=== PATIENT | female | born 1935 | race American Indian/Alaskan Native ===

== ENCOUNTER 2021-04-19 16:36 | Outpatient (REF) | payer MEDICARE, OTHER, SELFPAY | END 2021-04-19 16:37 | disposition home or self-care (01) | LOC: HO.LNP 16:36 | PROVIDERS: Visit Provider Nurse Practitioner Family | DX: R35.0 Frequency of micturition (principal) | CPT/HCPCS: 87086; 87088; 87186 ==

== ENCOUNTER 2021-04-22 16:33 | Emergency (ER) | payer MEDICARE, OTHER, SELFPAY ==
[2021-04-22 16:45] VITALS: BP 123/58; PULSE 89; RESP 18; TEMP 36.8; O2SAT 95; BMI 19.1
== END 2021-04-22 19:38 | disposition left against medical advice (07) ==
PROVIDERS: Emergency Provider Emergency Medicine; PCP Internal Medicine
DX: R41.82 Altered mental status, unspecified (principal)
CPT/HCPCS: 99282

== ENCOUNTER 2021-04-24 13:50 | Emergency (ER) | payer MEDICARE, OTHER, SELFPAY ==
--- NOTE | ~2021-04-24 | CT_ITS ---
EXAMINATION: CT HEAD WITHOUT CONTRAST CLINICAL INFORMATION: Dizziness and headache COMPARISON: None TECHNIQUE: Contiguous axial imaging was performed from the skull base to vertex without intravenous administration of contrast. This CT examination was performed using dose optimization techniques as appropriate, variously including the following: *Automated exposure control *Adjustment of mA and/or kV according to patient size (this includes techniques or standardized protocols for targeted exams where dose is matched to indication/reason for exam; i.e. extremities or head) *Use of iterative reconstruction technique DLP: 584 mGy-cm FINDINGS: There is no evidence of acute intracranial hemorrhage or territorial infarction. 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 No abnormal mass effect or midline shift is seen. Gonzales to white matter differentiation is well preserved. No extra-axial fluid collections are identified. The lateral ventricles are symmetrical in size and configuration without enlargement. There is diffuse periventricular hypodensity in both cerebral hemispheres suggestive of chronic small vessel ischemic changes The osseous structures and soft tissues are normal. The mastoid air cells and visualized portions of the paranasal sinuses are well aerated. 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
--- NOTE | ~2021-04-24 | XR_ITS ---
EXAMINATION: XR CHEST CLINICAL INFORMATION: Cough COMPARISON: Previous chest x-rays most recent August 2019 TECHNIQUE: 2 views of the chest were obtained. FINDINGS: The cardiac and mediastinal contours are stable. The thoracic aorta is calcified and tortuous. The lungs are well inflated. There is a new left apical nodule that measures 2 x 3 cm. There is question of bronchial wall thickening and small infiltrate the left lung base. The lungs are otherwise clear. There is no pleural effusion or pneumothorax. There are degenerative changes of the spine. There is a thoracolumbar scoliosis. XR/XR chest 2V IMPRESSION: New 1 x 2 cm left upper lobe nodule. Question bronchial wall thickening /small infiltrate at the left lung base.
[2021-04-24 13:56] VITALS: BP 124/40; PULSE 95; RESP 18; TEMP 36.6; O2SAT 94; BMI 19.1
--- NOTE | 2021-04-24 15:08 | ED_ITS ---
HPI - General Adult General Chief complaint: General Medical Stated complaint: Recheck Time Seen by Provider: 04/24/21 14:56 Related Data Previous Rx's Medication Instructions Recorded nifedipine 90 mg tablet,extended 90 mg PO DAILY #90 tab 07/26/20 release naproxen 500 mg tablet 500 mg PO BID PRN 90 Days #180 tab 08/01/20 cholecalciferol (vitamin D3) 25 25 mcg PO DAILY #90 tab 09/03/20 mcg (1,000 unit) tablet (Vitamin D3) fluticasone propionate 50 1 spray INTRANASAL BID 30 Days #16 12/16/20 mcg/actuation nasal g spray,suspension (Allergy Relief (fluticasone)) albuterol sulfate 90 mcg/actuation 2 puff INHALATION Q4-6H PRN 30 12/25/20 aerosol inhaler Days #8.5 g Allergies Allergy/AdvReac Type Severity Reaction Status Date / Time levofloxacin AdvReac Joint Pain Verified 04/30/21 11:47 Review of Systems Review of Systems: Constitutional : No Weight loss, No Fever, No Chills, No Night Sweats, Fatigue, Malaise ENT/Mouth : No Hearing loss, No Ear Pain, No Nasal Congestion, Sinus Pain, No Hoarseness, No sore throat, No Rhinorrhea, No Swallowing Difficulty Eyes: No Eye Pain, No Swelling, No Redness, No Foreign Body, No Discharge, No Vi danielle Changes Cardiovascular : No Chest Pain, No SOB, No Dyspnea on Exertion, No Orthopnea, No Edema, No Palpitations Respiratory : Cough, No Sputum, No Wheezing, No Smoke Exposure, No Dyspnea Gastrointestinal : No Nausea, No Vomiting, No Diarrhea, No Constipation, No abdominal Pain, No Hematochezia, No Melena Genitourinary : no irregular bleeding, No Dysuria, Urinary Frequency, No Hematuria, No Urinary Incontinence, Urgency, No Flank Pain, No Urinary Flow Changes, No Hesitancy Musculoskeletal : No joint pain, No Myalgias, No Joint Swelling Skin : No Skin Lesions, No rash Neuro : No Weakness, No Numbness, No Paresthesias, No Loss of Consciousness, No Dizziness, No Headache Psych : No Anxiety/Panic, No Depression, No SI/HI/AH/VH, No Social Issues, Heme/Lymph: No Bruising, No Bleeding,No Lymphadenopathy Endocrine : No Polyuria, No Polydipsia, No Temperature Intolerance Yes all other systems are reviewed and are negative [facility] Past Medical History Medical History (Updated 05/09/21 @ 20:49 by Becca Hill MD) COPD (chronic obstructive pulmonary disease) Hypertension Idiopathic scoliosis of thoracolumbar region Lesion of lung Lung nodule Sinusitis Urinary frequency UTI (urinary tract infection) Surgical History History of hysterectomy History of tubal ligation Family History Family History Mother No problems noted. Father No problems noted. Other Mental health disorder Social History Social History Housing: House Alcohol intake: never Patient Tobacco Use Status: Current everyday Tobacco user Tobacco use type: Cigarette Cigarette Packs Per Day: 1 Cigarettes Per Day: 20 service: No Current occupational status: retired Physical Exam Vital Signs: Vital Signs: Last Vital Signs Temp 98 F 04/24/21 13:56 Pulse 81 04/24/21 15:58 Resp 18 04/24/21 15:58 BP 127/45 L 04/24/21 15:58 Pulse Ox 97 04/24/21 15:58 Body Mass Index 19.1 Const: General: healthy appearing, no acute distress and well developed Nutritional Appearance: well nourished Orientation/consciousness: patient oriented x3 Neck: Neck: Yes normal visual inspection, Yes full ROM and Yes trachea midline Thyroid: Thyroid normal Resp: Auscultation: clear to auscultation bilaterally Cardio: Rate: regular rate Rhythm: regular rhythm GI: Inspection: Yes normal to inspection and No distended Palpation (GI): No hepatosplenomegaly present Auscultation: normal bowel sounds Skin: General skin exam: elasticity normal, turgor normal and dry skin Neuro: General: patient oriented x3 Course Course Course Narrative: 86-year-old female presents to emergency room with symptoms of confusion (not new, history of confusion before diagnosis of UTI), malaise, cough, sinus pain and headache. Patient reports that the headache is new. Princess kim was seen last Thursday at PCPs office, urinalysis showed nitrite, leukocytes and final cultures show E coli. Patient was placed on levofloxacin by her PCP. Patient took first dose and developed leg pain an achilles tendon pain and tenderness called PCPs office and was placed on Bactrim. She has been on it since Thursday and reports that she has not been feeling better. New symptoms headache, cough, malaise. Patient denies fever or chills. I will check her labs, CBC, BMP, Cx-ray, head CT, EKG, urinalysis with culture, will do mild hydration and change her antibiotic to Ceftin, which will cover both sinusitis and UTI. Second dose of Moderna COVID vaccine February 08 at Reevaluation(s) Reevaluation #1: Urine negative for nitrite or leukocytes. CT scan of the head shows no acute processes, normal sinus this. Chest x-ray shows no active acute disease however it shows 1 x 2 cm left upper lobe nodule, a new finding. Patient daughter reports to me that she has 2 alcoholic beverages in the evening. Symptoms of hallucinations decrease however yesterday she reports that she saw shadows in the kitchen when she was sitting down. Spoke to patient about abstaining from alcoholic beverages while she is taking the antibiotic. Patient can not finish a 7 day course instead of 10 day course of antibiotics. Added levofloxacin as allergy/adverse reaction. Patient can go home and follow- up with her PCP. Patient was encouraged to stop smoking Medical Decision Making Lab Data Result diagrams: 04/24/21 15:21 04/24/21 15:21 Labs: Lab Results 04/24/21 04/24/21 04/24/21 Range/Units 15:21 15:21 15:37 WBC 7.9 (4.8-10.8) X10*3/uL RBC 4.01 L (4.20-5.50) X10*6/uL Hgb 13.5 (12.0-16.0) g/dl Hct 39.3 (37-47) % MCV 98.0 (80-98) fL MCH 33.7 H (27.0-33.0) pg MCHC 34.4 (31.0-35.0) g/dl RDW 13.6 (11.0-16.0) % Plt Count 207 (160-400) X10*3/uL MPV 10.1 (9.4-12.3) fL Immature Gran % (Auto) 0.3 (0.0-0.4) % Neut % (Auto) 72.2 (45-73) % Lymph % (Auto) 17.1 L (20-40) % Garvin % (Auto) 7.1 (2-11) % Eos % (Auto) 2.7 (0-4) % Baso % (Auto) 0.6 (0-2) % Lymph # (Auto) 1.4 (1.2-4.9) X10*3/uL Garvin # (Auto) 0.6 (0.1-1.2) X10*3/uL Eos # (Auto) 0.2 (0.0-0.4) X10*3/uL Baso # (Auto) 0.1 (0.0-0.2) X10*3/uL Abs Immat Gran (auto) 0.02 (0.00-0.03) X10*3/uL Absolute Neuts (auto) 5.7 (2.0-8.3) X10*3/uL Absolute Nucleated RBC 0.000 (0.0-0.012) X10*3/uL Nucleated RBC % (auto) 0.0 (0.0-0.2) /100WBC Sodium 137 (135-145) mmol/L Potassium 4.4 (3.3-5.1) mmol/L Chloride 104 (96-108) mmol/L Carbon Dioxide 22 (22-29) mmol/L Anion Gap 15 (12-20) BUN 14 (9-16) mg/dL Creatinine 1.11 (0.5-1.4) mg/dL Estim Creat Clear Calc 26.1 Estimated GFR 47 Random Glucose 98 (60-115) mg/dL Calcium 9.1 (8.4-10.2) mg/dL Urine Color YELLOW Urine Appearance HAZY Urine pH 6.0 (5.0-8.0) Ur Specific [place] 1.010 (1.005-1.025) Urine Protein NEG (NEG-TRACE) MG/DL Urine Glucose (UA) NEG (NEG) MG/DL Urine Ketones NEG (NEG) MG/DL Urine Blood NEG (NEG) Urine Nitrite NEG (NEG) Ur Leukocyte Esterase NEG (NEG) Imaging Data CT scan - head: Radiologist's impression: FINDINGS: There is no evidence of acute intracranial hemorrhage or territorial infarction. 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 No abnormal mass effect or midline shift is seen. Gonzales to white matter differentiation is well preserved. No extra-axial fluid collections are identified. The lateral ventricles are symmetrical in size and configuration without enlargement. There is diffuse periventricular hypodensity in both cerebral hemispheres suggestive of chronic small vessel ischemic changes The osseous structures and soft tissues are normal. The mastoid air cells and visualized portions of the paranasal sinuses are well aerated. Chest x-ray: Radiologist's impression: FINDINGS: The cardiac and mediastinal contours are stable. The thoracic aorta is calcified and tortuous. The lungs are well inflated. There is a new left apical nodule that measures 2 x 3 cm. There is question of bronchial wall thickening and small infiltrate the left lung base. The lungs are otherwise clear. There is no pleural effusion or pneumothorax. There are degenerative changes of the spine. There is a thoracolumbar scoliosis. Discharge Plan Discharge Clinical Impression: Urinary frequency COPD (chronic obstructive pulmonary disease) Qualifiers: COPD type: unspecified COPD Qualified Code(s): J44.9 - Chronic obstructive pulmonary disease, unspecified Patient Disposition: Home, Self-Care Instructions: Chronic Cough (ED), Urinary Urgency and Frequency (DC) Additional Instructions: You were seen here today for headache, cough, fatigue, urinary frequency. Your urine is clean, take your antibiotics for total of [address] scan was negative for any abnormalities. Your chest x-ray does not show any active disease, however you do have nodule in your left upper lung that needs to be further investigated. Please follow-up with your primary care provider in 2-3 days. Make sure you do not drink alcohol while your taking antibiotics. Please consider smoking cessation. You may return to emergency department if you will have any concerning symptoms or if your current symptoms will get worse Prescriptions: No Action nifedipine 90 mg tablet extended release 90 mg PO DAILY Qty: 90 RF: 3 naproxen 500 mg tablet 500 mg PO BID PRN (Reason: pain) 90 Days Qty: 180 RF: 6 cholecalciferol (vitamin D3) [Vitamin D3] 25 mcg (1,000 unit) tablet 25 mcg PO DAILY Qty: 90 RF: 2 fluticasone propionate [Allergy Relief (fluticasone)] 50 mcg/actuation spray,suspension 1 spray intranasal BID 30 Days Qty: 16 RF: 6 albuterol sulfate 90 mcg/actuation HFA aerosol inhaler 2 puff inhalation Q4-6H PRN (Reason: shortness of breath or wheezing) 30 Days Qty: 8.5 RF: 7 Referrals: Becca Mabry MD [Primary Care Provider] - 2 days Interventions: ED Discharge Assessment Last Done: 04/24/21 17:54 Discharge Date/Time: 04/24/21 17:55
--- NOTE | 2021-04-24 15:10 | ECG_ITS ---
Test Reason : WEAKNESS Blood Pressure : / mmHG Vent. Rate : 086 BPM Atrial Rate : 086 BPM P-R Int : 168 ms QRS Dur : 074 ms QT Int : 352 ms P-R-T Axes : 053 026 055 degrees QTc Int : 421 ms Normal sinus rhythm Normal ECG When compared with ECG of 29-AUG-2017 17:34, No significant change was found Referred By: Ada Elias Electronically Signed By:Karl Mason
[2021-04-24] MEDS: 0.9 % Sodium Chloride 500 ML IV (15:22)
[2021-04-24 15:28] LABS: MANUAL DIFF FLAG NO
[2021-04-24 15:29] LABS: Basophils Absolute Auto 0.1 X10*3/uL (0.0-0.2); Basophils Percent Auto 0.6 % (0-2); Eosinophils Absolute Auto 0.2 X10*3/uL (0.0-0.4); Eosinophils Percent Auto 2.7 % (0-4); Hematocrit 39.3 % (37-47); Hemoglobin 13.5 g/dl (12.0-16.0); Imm Gran Abs Auto 0.02 X10*3/uL (0.00-0.03); Imm Gran Pct Auto 0.3 % (0.0-0.4); Lymphocytes Absolute Auto 1.4 X10*3/uL (1.2-4.9); Lymphocytes Percent Auto 17.1 % (20-40); Mean Corpuscular HGB Conc 34.4 g/dl (31.0-35.0); Mean Corpuscular Hemoglobin 33.7 pg (27.0-33.0); Mean Platelet Volume 10.1 fL (9.4-12.3); Monocytes Absolute Auto 0.6 X10*3/uL (0.1-1.2); Monocytes Percent Auto 7.1 % (2-11); Neutrophils Absolute Auto 5.7 X10*3/uL (2.0-8.3); Neutrophils Percent Auto 72.2 % (45-73); Platelet Count 207 X10*3/uL (160-400); Red Blood Count 4.01 X10*6/uL (4.20-5.50); Red Cell Distribution Width 13.6 % (11.0-16.0); White Blood Count 7.9 X10*3/uL (4.8-10.8)
[2021-04-24 15:45] LABS: Glucose Urine UA NEG (NEG); Leukocyte Esterase Urine NEG (NEG); Nitrite Urine NEG (NEG); Urine Blood NEG (NEG); Urine Ketones NEG (NEG); Urine Protein NEG (NEG-TRACE)
[2021-04-24 15:51] LABS: Appearance Urine HAZY; Color Urine YELLOW
[2021-04-24 15:58] VITALS: BP 127/45; PULSE 81; RESP 18; O2SAT 97
[2021-04-24 16:00] LABS: Anion Gap 15 (12-20); Blood Urea Nitrogen 14 mg/dL (9-16); Calcium 9.1 mg/dL (8.4-10.2); Carbon Dioxide 22 mmol/L (22-29); Chloride 104 mmol/L (96-108); Creatinine Clr Calc Pharmacy 26.1; Estimated Glomerular Filt Rate 47; Glucose Random 98 mg/dL (60-115); Potassium 4.4 mmol/L (3.3-5.1); Sodium 137 mmol/L (135-145)
== END 2021-04-24 17:55 | disposition home or self-care (01) ==
PROVIDERS: Nurse Practitioner Family; Emergency Provider Emergency Medicine Emergency Medical Services; PCP Internal Medicine
DX: R41.0 Disorientation, unspecified (principal); R51.9 Headache, unspecified; R05 Cough; F17.210 Nicotine dependence, cigarettes, uncomplicated; Z48.00 Encounter for change or removal of nonsurgical wound dressing; Z79.899 Other long term (current) drug therapy; Z71.6 Tobacco abuse counseling
CPT/HCPCS: 36415; 70450; 71046; 80048; 81003; 85025; 93005; 99284

== ENCOUNTER 2021-05-07 15:16 | Outpatient (REF) | payer MEDICARE, OTHER, SELFPAY ==
--- NOTE | ~2021-05-07 | CT_ITS ---
EXAMINATION: CT CHEST WITHOUT CONTRAST CLINICAL INFORMATION: Follow-up pulmonary nodule COMPARISON: Previous chest x-ray most recent 04/23/2021 TECHNIQUE: Multidetector volumetric CT imaging of the chest was done. Axial MIP volume rendering provided. Sagittal and coronal reformatted images were obtained. This CT examination was performed using dose optimization techniques as appropriate, variously including the following: *Automated exposure control *Adjustment of mA and/or kV according to patient size (this includes techniques or standardized protocols for targeted exams where dose is matched to indication/reason for exam; i.e. extremities or head) *Use of iterative reconstruction technique DLP: 160 mGy-cm FINDINGS: LUNGS: There is evidence of emphysema. There is mild biapical pleural parenchymal scarring. There is an irregularly-shaped thick-walled cavitary lesion left lung apex that measures 2 x 4.6 x 3.8 cm in transverse AP and longitudinal dimension. This abuts the pleural surface. There are scattered areas of mild bronchial wall thickening. There is artifact at the lung bases from respiratory motion. There is a small left posterior diaphragmatic hernia containing fat. MEDIASTINUM: There is evidence of severe atherosclerotic disease. The heart does not appear enlarged. There is moderate to severe coronary artery calcification. There is no pericardial effusion. The thoracic aorta is normal in caliber. There are no large hilar or mediastinal lymph nodes. PLEURA: There is no pleural effusion. No pleural mass or thickening. AXILLA: No lymphadenopathy. UPPER ABDOMEN: There is evidence of severe atherosclerotic disease. There may be a 1 cm splenic artery aneurysm. There is a calcification in the upper pole of the right kidney questionable for stone versus vascular calcification. OSSEOUS STRUCTURES: There is thoracolumbar scoliosis. There are old right lateral rib fractures. There is a probable Schmorl's node in the right superior endplate of the L1 vertebral body. CT/CT chest wo con IMPRESSION: Irregularly-shaped thick-walled cavitary lesion in the left lung apex. Infectious, inflammatory and neoplastic processes should be considered. Emphysema. Severe atherosclerotic disease and coronary artery calcification. Findings will be communicated by the [facility] work flow bonding supervisor Rose Quinn..
== END 2021-05-07 15:17 | disposition home or self-care (01) ==
LOC: HO.CT 15:16
PROVIDERS: Visit Provider Internal Medicine
DX: R91.1 Solitary pulmonary nodule (principal)
CPT/HCPCS: 71250